=== PATIENT | male | born 1960 | race African-American/Black ===

== ENCOUNTER 2020-04-14 17:00 | Emergency (ER) | payer SELFPAY ==
[~2020-04-14] VITALS: Ht 175.3 cm; Wt 117.7 kg
[2020-04-14 17:13] VITALS: BP 128/69
== END 2020-04-14 17:22 | disposition left against medical advice (07) ==
LOC: EMS 17:00
DX: R06.02 Shortness of breath (principal); Z53.21 Procedure and treatment not carried out due to patient leaving prior to being seen by health care provider